=== PATIENT | male | born 1970 | race African-American/Black ===

== ENCOUNTER 2023-09-29 13:32 | Emergency (ER) | payer OTHER ==
[2023-09-29 13:50] VITALS: BP 124/82; PULSE 77; RESP 18; TEMP 97.8; BMI 28.5
[2023-09-29] MEDS ORDERED: IBUPROFEN 400 MG TABLET (FP) PO ONE (14:50)
[2023-09-29] MEDS: IBUPROFEN 400 MG TABLET (FP) PO ONE (14:51)
== END 2023-09-29 17:09 | disposition home or self-care (01) ==
LOC: FER 13:32
DX: M25.522 Pain in left elbow (principal); W22.8XXA Striking against or struck by other objects, initial encounter; Y99.0 Civilian activity done for income or pay
CPT/HCPCS: 73070-TC-LT-FY; 99283-25